=== PATIENT | female | born 1975 | race Caucasian/White ===

== ENCOUNTER 2019-01-03 12:12 | Outpatient (CLI) | payer OTHER ==
--- NOTE | 2019-01-03 14:14 | XRAY Report ---
Reason: COUGH,CHEST PAIN Procedure Date: 01/03/2019 Accession Number: [id number] / [id number] Procedure: XR - Chest 2 View X-Ray CPT Code: 78241 FULL RESULT: EXAM: CHEST RADIOGRAPHY EXAM DATE: 01/03/2019 01:04 PM. CLINICAL HISTORY: COUGH, CHEST AND BACK PAIN. COMPARISON: None. TECHNIQUE: 2 views. FINDINGS: Lungs/Pleura: No focal opacities evident. No pleural effusion. No pneumothorax. Normal volumes. Mediastinum: Heart and mediastinal contours are unremarkable. Other: None. IMPRESSION: Normal 2-view chest radiography. [facility]
== END 2019-01-03 12:13 | disposition home or self-care (01) ==
LOC: DI 12:12
PROVIDERS: ATTEND Internal Medicine
DX: R05 Cough (principal); R07.9 Chest pain, unspecified
CPT/HCPCS: 71046

== ENCOUNTER 2020-03-11 12:32 | Outpatient (CLI) | payer OTHER ==
[2020-03-11] MEDS ORDERED: IOVERSOL 320 100 ML VIAL IVP ONE ×2 (12:42→13:42)
[2020-03-11] MEDS ORDERED: IOVERSOL 320 50 ML VIAL ONE (12:42)
[2020-03-11 13:10] LABS: CREATININE 0.7 mg/dL (0.4-1.0)
[2020-03-11] MEDS ORDERED: IOVERSOL 320 50 ML VIAL PO ONE (13:41)
--- NOTE | 2020-03-11 14:07 | CT Report ---
PROCEDURE: Abdomen/Pelvis W INDICATIONS: SEVERE LLQ PX CONTRAST: IV CONTRAST: Optiray 320 ml: 100 PO CONTRAST: Optiray 320 ml50 TECHNIQUE: After the administration of oral and intravenous contrast, 5 mm thick sections acquired from the diap hragms to the symphysis. 5 mm thick coronal and sagittal reformats were acquired. For radiation dos e reduction, the following was used: automated exposure control, adjustment of mA and/or kV accordin g to patient size. COMPARISON: None. FINDINGS: Image quality: Excellent. ABDOMEN: Lung bases: Lung bases are clear. Heart size is normal. Solid organs: Liver is mildly enlarged with steatosis. The spleen is normal in size and enhancement . Gallbladder is contracted and grossly unremarkable. Biliary system is non dilated. Pancreas enha nces normally. No adrenal nodules. Kidneys demonstrate normal size and enhancement, without hydrone phrosis. Peritoneum and bowel: Bowel loops are nonobstructive. There is prominent thickening and pericolonic inflammatory change within the sigmoid colon. Colonic diverticula are present. No free fluid or free air. Nodes and vessels: No retroperitoneal or mesenteric adenopathy by size criteria. Aorta and inferior vena cava are normal in size. Miscellaneous: No ventral hernias. PELVIS: Genitourinary: Bladder wall thickness is normal. Miscellaneous: No inguinal hernias or adenopathy. Bones: No suspicious bony lesions. No vertebral body compression fractures. IMPRESSION: 1. Sigmoid colitis secondary to diverticulitis. No free fluid, free air or abscess is identified. A message with call back number was left for Dr. Whitney Gillespie on 03/11/20 at 2:00 pm, who was not imm ediately available for consultation. Reviewed by: Avril Mota MD on 03/11/2020 2:05 PM PDT Approved by: Avril Mota MD on 03/11/2020 2:05 PM PDT Station ID: [id number]
== END 2020-03-11 12:33 | disposition home or self-care (01) ==
LOC: DI 12:32
PROVIDERS: ATTEND Internal Medicine
DX: K57.32 Diverticulitis of large intestine without perforation or abscess without bleeding (principal); K52.9 Noninfective gastroenteritis and colitis, unspecified; Z79.899 Other long term (current) drug therapy
CPT/HCPCS: 36415; 74177; 82565; Q9967

== ENCOUNTER 2020-07-29 07:14 | Outpatient (CLI) | payer OTHER ==
--- NOTE | 2020-07-29 09:01 | MRI Report ---
PROCEDURE: Knee RT W/O INDICATIONS: SEVERE RT KNEE PAIN TECHNIQUE: Noncontrast sagittal PD fast spin echo and T2 fast spin echo with fat saturation, sagittal 3-D gradie nt sequence with fat saturation; coronal T1 spin echo and PD fast spin echo with fat saturation, and axial PD fast spin echo with fat saturation through the knee. COMPARISON: None. FINDINGS: Image quality: Partially degraded by motion artifact. Menisci: Linear oblique high T2 signal intensity traverses the posterior horn medial meniscus, demons trating inferior articular surface extension. There is linear horizontally oriented high signal inten sity within the lateral meniscal body and anterior horn, demonstrating superior articular surface ext ension, indicating horizontal tearing. Cruciate ligaments: The anterior and posterior cruciate ligaments appear intact. Medial structures: The medial collateral ligament appears intact. Visualized portions of the pes an serinus tendons appear normal. No abnormal bursal fluid. Lateral structures: The lateral collateral ligament demonstrates mild T2 signal elevation at the fem oral origin. The long and short heads of the biceps femoris tendon appear intact. The popliteus tend on appears normal; the popliteofibular ligament appears intact. The posterosuperior and anteroinferi or popliteomeniscal fascicles appear intact. The arcuate and fabellofibular ligaments appear intact, around the lateral inferior geniculate artery. Iliotibial band appears normal. Anterior structures: The quadriceps and patellar tendons appear intact. Patellar alignment is stormy l. No femoral trochlear dysplasia or ventral trochlear prominence. No edema in the infrapatellar fa t pad. Bones and cartilage: No bone marrow contusions or fractures. Mild tricompartmental periarticular ost eophyte formation. Moderate articular cartilage loss diffusely overlies the weightbearing aspects of the medial femoral condyle and medial tibial plateau. Mild diffuse articular cartilage loss overlies the weightbearing aspects of the lateral femoral condyle and lateral tibial plateau. There is a super imposed full-thickness articular cartilage defect overlying the mid/posterior weightbearing aspect of the lateral femoral condyle, measuring 7 mm anteroposterior by 10 mm transverse. There is mild diffu se articular cartilage loss overlying the medial and lateral patellar facets with a superimposed 4 mm region of high-grade articular cartilage loss overlying the lateral patellar apex. Joint space: There is a moderate knee joint effusion containing moderate debris. Moderate Hale?s cy st. Normal appearing synovial plicae are incidentally noted. IMPRESSION: 1. Tricompartmental osteophyte is with associated articular cartilage loss. 2. Medial and lateral meniscal tearing. 3. Low-grade partial-thickness tearing of the lateral collateral ligament. 4. Knee joint effusion, Hale's cyst, and intra-articular debris. Reviewed by: Maddy Esquivel MD on 07/29/2020 9:00 AM PST Approved by: Maddy Esquivel MD on 07/29/2020 9:00 AM PST Station ID: [id number]
== END 2020-07-29 07:15 | disposition home or self-care (01) ==
LOC: DI 07:14
PROVIDERS: ATTEND Internal Medicine
DX: M25.761 Osteophyte, right knee (principal); S83.241A Other tear of medial meniscus, current injury, right knee, initial encounter; S83.281A Other tear of lateral meniscus, current injury, right knee, initial encounter; S83.421A Sprain of lateral collateral ligament of right knee, initial encounter; M25.461 Effusion, right knee; M71.21 Synovial cyst of popliteal space [Baker], right knee

== ENCOUNTER 2020-08-02 14:33 | Outpatient (CLI) | payer OTHER ==
--- NOTE | 2020-08-03 17:24 | XRAY Report ---
PROCEDURE: Knee 4 View RT INDICATIONS: R KNEE PX TECHNIQUE: 4 views of the right knee and 3 views of the left were acquired. COMPARISON: None. FINDINGS: Bones: No fractures or dislocations. No suspicious bony lesions. Mild bilateral knee tricompartment al osteophytes arthritis.. Soft tissues: Trace right knee joint effusion. No suspicious soft tissue calcifications. IMPRESSION: 1. Mild bilateral knee tricompartmental osteoarthritis. 2. Trace nonspecific right knee joint effusion. Reviewed by: Jayashree Greenberg MD, PhD on 08/03/2020 5:23 PM PST Approved by: Jayashree Greenberg MD, PhD on 08/03/2020 5:23 PM PST Station ID: [id number]
== END 2020-08-02 23:59 | disposition home or self-care (01) ==
LOC: DI.N 14:33
PROVIDERS: ATTEND Physician Assistant
DX: M23.341 Other meniscus derangements, anterior horn of lateral meniscus, right knee (principal); M17.0 Bilateral primary osteoarthritis of knee

== ENCOUNTER 2021-04-26 07:00 | Outpatient (CLI) | payer OTHER | END 2021-04-26 23:59 | disposition home or self-care (01) | LOC: COV 07:00 | PROVIDERS: ATTEND Family Medicine | DX: R05 Cough (principal); R06.02 Shortness of breath; M79.10 Myalgia, unspecified site; R53.83 Other fatigue; R68.83 Chills (without fever); R09.81 Nasal congestion; J34.89 Other specified disorders of nose and nasal sinuses; R11.0 Nausea; Z20.822 Contact with and (suspected) exposure to COVID-19 ==

== ENCOUNTER 2021-05-16 10:39 | Emergency (ER) | payer OTHER ==
[2021-05-16 10:54] VITALS: BP 151/76
--- NOTE | 2021-05-16 11:37 | ED Physician Documentation ---
History of Present Illness - Stated complaint Stated Complaint: LEG/FEET SWELLING - Chief complaint Chief Complaint: General - History obtained from History obtained from: Patient - History of Present Illness Timing: How many weeks ago (8) - Additonal information Additional information: 45-year-old female reports that she has had swelling in her lower extremities bilaterally for the past 2-1/2 months and that it appeared in her left leg before the right leg and she has had a lot less swelling on the right than the left. She does have some pain to the backside of the left leg. She reports that she did sleep with her legs in a dependent position 2 nights ago and when her mother saw her leg is swollen today she asked her to come to the emergency department to be evaluated. The patient reports that she has had some exertional dyspnea and has been treated for bronchitis recently and seem to be improving with her cough and congestion. She has been tested for Covid and she has had her Covid vaccination completed in February of this year. She does drink alcohol on a regular basis but she does not usually sleep in a recliner. Review of Systems Constitutional: denies: Fever, Chills, Myalgias Eyes: denies: Decreased vision Ears: denies: Drainage/discharge Nose: reports: Congestion. denies: Rhinorrhea / runny nose Throat: denies: Sore throat Cardiac: denies: Chest pain / pressure, Palpitations Respiratory: reports: Dyspnea (improving), Cough (improving) GI: denies: Abdominal Pain, Nausea, Vomiting : denies: Dysuria, Frequency Skin: denies: Rash Musculoskeletal: reports: Extremity pain, Extremity swelling. denies: Neck pain, Back pain Neurologic: denies: Generalized weakness, Focal weakness, Numbness PD PAST MEDICAL HISTORY - Present Medications Home Medications: Ambulatory Orders Medication Instructions Recorded Confirmed Furosemide [Lasix] 20 mg PO DAILY #20 tablet 05/16/21 Potassium Chloride [Micro-K] 10 meq PO DAILY #20 cap 05/16/21 - Allergies Allergies/Adverse Reactions: Allergies Allergy/AdvReac Type Severity Reaction Status Date / Time No Known Drug Allergies Allergy Verified 05/16/21 10:54 PD ED PE NORMAL - Vitals Vital signs reviewed: Yes (tachy and hypertensive ) - General General: Alert and oriented X 3, No acute distress, Well developed/nourished - HEENT HEENT: Atraumatic, PERRL, EOMI - Neck Neck: Supple, no meningeal sign, No bony TTP - Respiratory Respiratory: No respiratory distress - Derm Derm: Normal color, Warm and dry, No rash - Extremities Extremities: No deformity, Other (edema is present bilaterally worse on the left. There is tenseness to the skin of the LE and pain to palpation of the posterior calf ) - Neuro Neuro: Alert and oriented X 3, benefit specialist 2-12 intact, No motor deficit, No sensory deficit, Normal speech Eye Opening: Spontaneous Motor: Obeys Commands Verbal: Oriented GCS Score: 15 - Psych Psych: Normal mood, Normal affect Results - Vitals Vitals: Vital Signs - 24 hr 05/16/21 10:49 Temperature 36.2 C L Heart Rate 102 H Respiratory 20 Rate Blood Pressure 151/76 H O2 Saturation 96 Oxygen O2 Source Room air - Labs Labs: Laboratory Tests 05/16/21 05/16/21 05/16/21 11:36 11:48 11:48 WBC 9.8 RBC 4.89 Hgb 14.7 Hct 47.3 H MCV 96.7 MCH 30.1 MCHC 31.1 L RDW 15.0 Plt Count 359 MPV 9.2 Neut # (Auto) 7.4 H Lymph # (Auto) 1.4 L [place] # (Auto) 0.6 Eos # (Auto) 0.3 Baso # (Auto) 0.1 Absolute Nucleated RBC 0.00 Nucleated RBC % 0.0 Sodium 137 Potassium 4.0 Chloride 100 L Carbon Dioxide 27 Anion Gap 10.0 BUN 7 Creatinine 0.6 Estimated GFR (MDRD) 109 Glucose 115 H Calcium 8.8 Total Bilirubin 1.2 H AST 76 H ALT 63 H Alkaline Phosphatase 89 Total Protein 7.2 Albumin 3.5 Globulin 3.7 Albumin/Globulin Ratio 0.9 L Lipase 48 Urine Color YELLOW Urine Clarity CLEAR Urine pH 6.0 Ur Specific [place] 1.020 Urine Protein NEGATIVE Urine Glucose (UA) NEGATIVE Urine Ketones NEGATIVE Urine Occult Blood NEGATIVE Urine Nitrite NEGATIVE Urine Bilirubin NEGATIVE Urine Urobilinogen 0.2 (NORMAL) Ur Leukocyte Esterase NEGATIVE Ur Microscopic Review NOT INDICATED Urine Culture Comments NOT INDICATED Urine HCG, Qual NEGATIVE Ethyl Alcohol < 5.0 PD MEDICAL DECISION MAKING - ED course Complexity details: reviewed results, re-evaluated patient, considered differential, d/w patient ED course: 45-year-old female with bilateral lower extremity swelling has worsened swelling on the left than the right and a duplex ultrasound is without evidence of deep vein thrombosis in this leg. She appears to have some fluid retention. She is an alcohol drinker. She does have an issue with dependent edema as well. I discussed with the patient the use of compression stockings, furosemide and reduction in alcohol consumption Departure - Departure Disposition: Home, Self Care Clinical Impression: Lower extremity edema Hale cyst Qualifiers: Laterality: left Qualified Code(s): M71.22 - Synovial cyst of popliteal space [Geoffrey], left knee Condition: Stable Instructions: ED Cyst Hale, ED Edema Legs Bilateral Follow-Up: Whitney Gillespie MD [Primary Care Provider] - Prescriptions: Furosemide [Lasix] 20 mg PO DAILY #20 tablet Potassium Chloride [Micro-K] 10 meq PO DAILY #20 cap Comments: Today there is no evidence of deep vein thrombosis causing the swelling in her leg. This looks like fluid retention. The recommendation is to take some Lasix which will make you urinate more and avoid sleeping with her legs in a dependent position. In addition we recommend you use compression stockings during the day when you are up and about until your swelling is resolved. You may need to take the Lasix for 1 or more weeks. It is not intended for you to have to take the Lasix regularly for any extended period of time. Discharge Date/Time: 05/16/21 12:51
[2021-05-16 11:44] LABS: BILIRUBIN,URINE NEGATIVE (NEGATIVE); GLUCOSE, URINE (UA) NEGATIVE (NEGATIVE); KETONES,URINE (UA) NEGATIVE (NEGATIVE); LEUKOCYTE ESTERASE, URINE NEGATIVE (NEGATIVE); NITRITE,URINE NEGATIVE (NEGATIVE); OCCULT BLOOD,URINE NEGATIVE (NEGATIVE); PROTEIN,URINE NEGATIVE (NEGATIVE); UROBILINOGEN,URINE 0.2 (NORMAL) E.U./dL (NORMAL)
[2021-05-16 11:47] LABS: CLARITY,URINE CLEAR (CLEAR); HCG UR QUAL NEGATIVE
[2021-05-16 11:53] LABS: BASOPHILS # (AUTO) 0.1 10^3/uL (0.0-0.1); BASOPHILS % (AUTO) 0.6 %; EOSINOPHILS # (AUTO) 0.3 10^3/uL (0.0-0.7); EOSINOPHILS % (AUTO) 2.8 %; HCT - HEMATOCRIT 47.3 % (37.0-47.0); HGB - HEMOGLOBIN 14.7 g/dL (12.0-16.0); LYMPHOCYTES # (AUTO) 1.4 10^3/uL (1.5-3.5); LYMPHOCYTES % (AUTO) 14.5 %; MEAN CORPUSCULAR HEMOGLOBIN 30.1 pg (27.0-31.0); MEAN CORPUSCULAR HGB CONC 31.1 g/dL (32.0-36.0); MEAN CORPUSCULAR VOLUME 96.7 fL (81.0-99.0); MEAN PLATELET VOLUME 9.2 fL (7.9-10.8); MONOCYTES # (AUTO) 0.6 10^3/uL (0.0-1.0); MONOCYTES % (AUTO) 5.6 %; NEUTROPHILS # (AUTO) 7.4 10^3/uL (1.5-6.6); NEUTROPHILS % (AUTO) 75.9 %; PLT - PLATELET COUNT 359 10^3/uL (130-450); RED BLOOD COUNT 4.89 10^6/uL (4.20-5.40); WHITE BLOOD COUNT 9.8 x10^3/uL (4.8-10.8)
[2021-05-16 12:06] LABS: ALBUMIN 3.5 g/dL (3.2-5.5); ALBUMIN/GLOBULIN RATIO 0.9 (1.0-2.2); ALKALINE PHOSPHATASE 89 IU/L (42-121); ALT ALANINE AMINOTRANSFERASE 63 IU/L (10-60); AST ASPARTATE AMINOTRANSFERASE 76 IU/L (10-42); BILIRUBIN,TOTAL 1.2 mg/dL (0.2-1.0); BUN - BLOOD UREA NITROGEN 7 mg/dL (6-20); CALCIUM 8.8 mg/dL (8.5-10.3); CARBON DIOXIDE - CO2 27 mmol/L (21-32); CHLORIDE 100 mmol/L (101-111); CREATININE 0.6 mg/dL (0.4-1.0); ETOH - ETHANOL < 5.0 mg/dL; GFR - MDRD 109 (>89); GLUCOSE 115 mg/dL (70-100); LIPASE 48 U/L (22-51); SODIUM 137 mmol/L (135-145); TOTAL PROTEIN 7.2 g/dL (6.7-8.2)
--- NOTE | 2021-05-16 12:44 | Ultrasound Report ---
PROCEDURE: Duplex Ext Veins Left INDICATIONS: swelling posterior pain TECHNIQUE: Real-time imaging, as well as color and pulse Doppler interrogation, were performed of the lower extr emity deep veins from the inguinal ligament to the popliteal fossa. COMPARISON: None. FINDINGS: The deep veins are normally compressible, and free of intraluminal thrombus. Color and pu lse Doppler demonstrate normal phasic intraluminal flow. There is normal augmentation response to di stal compression maneuver. Quality of visualization of the left-sided calf veins is limited by lower extremity edema. Note is made of a 2.7 x 4.1 x 7.0 cm Hale's cyst behind the left knee. IMPRESSION: Left knee Hale's cyst, calf region prominent edema reduces quality of visualization of the calf veins. No DVT found. Reviewed by: Corey iKng MD on 05/16/2021 12:43 PM PDT Approved by: Corey King MD on 05/16/2021 12:43 PM PDT Station ID: [id number]
== END 2021-05-16 12:51 | disposition home or self-care (01) ==
LOC: ED 10:39
DX: R60.0 Localized edema (principal); M71.22 Synovial cyst of popliteal space [Baker], left knee
CPT/HCPCS: 36415; 80053; 80320; 81001; 81003; 81025; 83690; 85025; 87086; 99284